=== PATIENT | male | born 1985 | race Caucasian/White ===

== ENCOUNTER 2021-08-06 16:48 | Emergency (ER) | payer OTHER ==
[2021-08-06] MEDS ORDERED: FLUORESCEIN NA 1 EA STRIP OD ONE (16:59)
[2021-08-06] MEDS ORDERED: FLUORESCEIN NA 1 EA STRIP ONE (17:00)
[2021-08-06] MEDS ORDERED: TETRACAINE 0.5% OPHTH SOLN 2 ML BOTTLE ONE (17:00)
[2021-08-06] MEDS ORDERED: TETRACAINE 0.5% HCL 0.6ML DROPPER.BOTTLE OD ONE (17:01)
[2021-08-06 17:03] VITALS: BP 110/73; PULSE 70; TEMP 98.6; BMI 22.3
== END 2021-08-06 17:25 | disposition home or self-care (01) ==
LOC: FER 16:48
DX: H01.00A Unspecified blepharitis right eye, upper and lower eyelids (principal)
CPT/HCPCS: 99283-25